=== PATIENT | female | born 1990 | race Hispanic/Latino ===

== ENCOUNTER 2025-07-25 08:53 | Emergency (ER) | payer OTHER, SELFPAY ==
[2025-07-25 08:53] VITALS: BP 113/71; PULSE 56; RESP 16; TEMP 36.2; O2SAT 100; BMI 24.8
--- NOTE | 2025-07-25 09:23 | EDS_ITS ---
HPI HPI - GI History of Present Illness Chief Complaint: Abd Pain Informant: patient and spouse/S.O. Abdominal Pain/Flank Pain Onset: Today and Yesterday Quality: Dull Current Severity: Mild Maximum Severity: Mild Nausea/Vomiting/Emesis GI Symptom: Negative for Nausea or Vomiting Diarrhea/Melena/Hematochezia GI Symptom: Negative for Diarrhea, Melena or Hematochezia Associated Symptoms Associated Symptoms: Negative for Dysuria, Frequency, Hematuria or Urgency Narrative Narrative: Healthy 34-year-old female moved from [place] about a year ago to this area. 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 Patient had a miscarriage earlier this year. Of the first time she is ever been . She has had lower abdominal discomfort pelvic discomfort since yesterday. Denies any dysuria. No fever. She took a test 1 was slightly positive the other 1 was negative she does not know if she could be . Last menstrual period was around the eighth of last month. She denies any vaginal bleeding. She has no prior abdominal or pelvic surgeries. G1, P0 Ab1. That being a miscarriage months ago. Prior similar symptoms: No Recent Illness/Hospitalization: No PFSH PFSH Medical History no medical history no medical history Allergy/AdvReac Type Severity Reaction Status Date / Time No Known Allergies Allergy Verified 07/25/25 08:55 Social History Smoking Status: Never smoker ROS ROS ED ROS Narrative Denies recent illness. Constitutional Constitutional ED: Denies chills or fever(s) ENT ENT ED: Denies ear pain Cardiovascular Cardiovascular: Denies chest pain Respiratory/Chest Respiratory/Chest: Denies cough or dyspnea Gastrointestinal Gastrointestinal: Reports abdominal pain Genitourinary Genitourinary ED: Denies dysuria or hematuria Musculoskeletal Musculoskeletal: Denies arthralgias or back pain Integumentary Denies abscess or Abrasions Neurologic Neurologic: Denies headache(s) Psychiatric Psychiatric: Denies anxiety Hematologic/Lymphatic Hematologic/Lymphatic: Denies easy bleeding or easy bruising Allergic/Immunologic Allergic/Immunologic ED: Denies mouth swelling, tongue swelling or urticaria EXAM Physical Exam Narrative Exam Narrative: Well-appearing 34-year-old female. Vital signs stable afebrile. She does not look septic toxic no distress. 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 H EENT exam pupils round react light. Moist mucous membranes. Neck nontender no JVD. No lymphadenopathy. Back nontender. Lungs clear to auscultation bilaterally. Heart regular rhythm no murmur. Chest wall and ribs are nontender. Abdomen soft nondistended normal bowel sounds without peritoneal signs. She describes pelvic discomfort but there is no reproducible pain. Moving all 4 extremities. Nontender no edema. Good strength normal range of motion. She is awake and alert. Answering questions following commands. No focal motor deficits. Very benign exam. Const Vital Signs: 07/25/25 08:53 07/25/25 10:53 Temperature 97.1 F L Temperature Source Temporal Pulse Rate 56 L 61 Respiratory Rate 16 14 Blood Pressure 113/71 110/77 Blood Pressure Mean 85 88 Pulse Ox 100 99 Oxygen Delivery Method Room Air Room Air Positive well nourished and well developed; Negative for obese, cachectic, contractures or unkempt General Appearance ED: well developed and NAD; Negative for unkempt, cachectic, contractures or pallor Nutritional Appearance: Negative for cachectic or obese HEENT Reports moist mucous membranes normocephalic and atraumatic Eyes PERRL and EOMs intact bilaterally General Eye ED: Negative for pale conjunctiva or scleral icterus Neck no lymphadenopathy, supple and no JVD Resp normal respiratory effort and clear to auscultation bilaterally Cardio regular rate, regular rhythm, S1 normal heart sound, S2 normal heart sound and no murmurs GI non-tender, non-distended and no masses Inspection: Negative for abdominal distention Auscultation: normoactive bowel sounds Palpation: soft; Negative for tender, guarding or rebound tenderness present Back/Spine no CVA tenderness Extremity full ROM General Extremety ED: Negative for edema or tenderness General Extremity: Negative for edema Neuro CN's II-XII intact bilaterally, moves all extremities and no sensory deficits noted Sensorium / Orientation: alert, oriented to person, oriented to place and oriented to time Motor Exam: strength 5/5 throughout Psych mental status grossly normal and thought process normal Appearance: Negative for unkempt Skin no wounds General Skin Exam: Negative for jaundice or pallor Lesions: no lesions Rashes: no rashes MDM MDM MDM Narrative Medical decision making narrative: 34-year-old female pelvic discomfort may or may not be . Last menstrual period was about a month ago. G1, P0 Ab1 with having a miscarriage earlier this year. Repeat exam patient is doing well. She will be discharged home with outpatient follow-up with a local [facility]. Patient is doing well. We discussed all of her test results. Again she does not think she was bleeding today there is a small discharge. History & Record Review Discussion w/independent historian: Patient and Family Additional record(s) reviewed:: No prior records Lab Data Attestation: I reviewed the patient's lab results. Lab results narrative: CBC unremarkable. White count of 10. H&H 13.6 and 39. Platelets 247. Chemistries are normal gap of 8. Normal BUN and creatinine. Glucose 88. UA normal. Serum test is positive. Blood type a positive. Quant 13. Blood type a positive. Ultrasound showed no intrauterine but it is very early with a quant only 13 that is not surprising. Labs: Laboratory Results - last 24 hr 07/25/25 07/25/25 07/25/25 09:30 10:27 11:10 WBC 10.9 RBC 4.32 Hgb 13.6 Hct 39.2 MCV 90.7 MCH 31.5 MCHC 34.7 RDW Std Deviation 39.9 RDW Coeff of Matthew 12.1 Plt Count 247 MPV 10.2 Immature Gran % (Auto) 0.500 Neut % (Auto) 72.6 H Lymph % (Auto) 12.7 L [place] % (Auto) 7.5 Eos % (Auto) 6.2 H Baso % (Auto) 0.5 Absolute Neuts (auto) 8.0 H Absolute Lymphs (auto) 1.39 Nucleated RBC % 0 Sodium 139 Potassium 4.0 Chloride 106 Carbon Dioxide 24.9 Anion Gap 8 BUN 11 Creatinine 0.96 Estim Creat Clear Calc 69.96 Est GFR (MDRD) Non-Af 78 BUN/Creatinine Ratio 11.8 Glucose 88 Calcium 9.0 HCG, Quant 13 H Serum , Qual POSITIVE Urine Color Yellow Urine Clarity Clear Urine pH 7.0 Ur Specific [place] 1.010 Urine Protein Negative Urine Glucose (UA) Normal Urine Ketones Negative Urine Occult Blood 10 H Urine Nitrite Negative Urine Bilirubin Negative Urine Urobilinogen Normal Ur Leukocyte Esterase Negative Urine RBC 0 SEEN Urine WBC 0 SEEN Ur Squamous Epith Cells 0-5 SEEN Urine Bacteria 0 SEEN Urine Mucus 0 SEEN Blood Type A POSITIVE Radiography Diagnostic Testing: Clinical Impression(s) from Imaging Studies Obstetrics Ultrasound 07/25/25 11:03 IMPRESSION: No intrauterine gestational sac or pole is seen. Small left corpus luteum cyst. Correlation with beta HCG recommended for further evaluation. Reading Location: [id number] Discharge Plan Triage Chief Complaint: Abd Pain ED Provider: Joseph Flores Dx/Rx/DC Orders Clinical Impression: First trimester Instructions: First Trimester Primary Care Provider: Care Physician,No Primary Referrals: Cari Latham DO [Med Staff - Active Staff] - As soon as possible Kristie Villagran MD [Med Staff - Active Staff] - As soon as possible Care Physician,No Primary [Primary Care Provider] - Activity Restrictions/Additional Instructions: Follow-up with one of the local [facility] group. You have a very early . Call their office. Tell them you are in the emergency department. You need follow-up. Print Language: [place] Disposition Disposition: Home, Self Care
[2025-07-25 09:48] LABS: Hematocrit 39.2 % (37-47); Hemoglobin 13.6 g/dL (12.0-15.0); Immature Granulocytes Count 0.050 X10^3/uL (0.0-0.0); Mean Corp Hgb Conc 34.7 g/dL (32-36); Mean Corpuscular Volume 90.7 fL (81-99); Mean Platelet Vol. 10.2 fl (6.2-12.0); NRBC Flagged by Analyzer 0 % (0-5); Platelet Count 247 K/mm3 (150-450); RBC Distribution Width CV 12.1 % (11.6-14.6); RBC Distribution Width SD 39.9 fl (35.1-43.9); Red Blood Count 4.32 M/mm3 (4.2-5.4); White Blood Count 10.9 K/mm3 (4.4-11.0)
[2025-07-25 10:04] LABS: Internal QC Validated? YES +Cl - CLEAR BKGD; Record Kit Lot#, Serum Preg. 0000964736
[2025-07-25 10:14] LABS: Pregnancy, Serum, hCG Quali. POSITIVE Negative
[2025-07-25 10:15] LABS: Anion Gap 8 (5-15); BUN 11 mg/dL (4-19); BUN/Creat Ratio 11.8 RATIO (10-20); Calcium,Total 9.0 mg/dL (7.6-11.0); Carbon Dioxide 24.9 mmol/L (21.0-32.0); Chloride 106 mmol/L (98-108); Estimated Creatinine Clearance 69.96 ml/min (50-250); Glucose 88 mg/dL (70-99); Potassium 4.0 mmol/L (3.3-5.1)
[2025-07-25 10:31] LABS: Mucous, Urine 0 SEEN /hpf (<or=2+); Red Blood Cells-Urine 0 SEEN /hpf (0-5)
[2025-07-25 10:35] LABS: Color, Urine Yellow (Yellow); Glucose, Dipstick Normal (Normal); Ketone-Dipstick Negative (Negative); Leukocyte Esterase-Dipstick Negative /ul (Negative); Nitrite-Dipstick Negative (Negative); Occult Blood-Urine 10 /ul (Negative); Protein-Dipstick Negative (Negative); Specific Gravity, Urine 1.010 (1.002-1.030); Urine Bilirubin Dipstick Negative (Negative)
[2025-07-25 10:47] LABS: Squamous Epithelial Cells - UA 0-5 SEEN /hpf (5-10)
[2025-07-25 10:53] VITALS: BP 110/77; PULSE 61; RESP 14; O2SAT 99
--- NOTE | 2025-07-25 11:03 | US_ITS ---
PROCEDURE: TRANSVAGINAL W/PREG US 07/25/2025 REASON FOR EXAM: PELVIC PAIN Left pelvic pain. Bleeding. TECHNIQUE: Procedure Code: [id number] Modality: US Procedure: TRANSVAGINAL W/PREG US COMPARISON: None FINDINGS: Comments: LMP: June 22, 2025. Number of Gestational Sacs: None Number of Fetuses: None Heart Rate: Not detected. ( Yolk Sac: Nonvisualized. Placenta: Not visualized. Uterine Abnormalities: Maternal uterus is unremarkable. Ovaries / Adnexa: Both maternal ovaries are visualized and unremarkable. 1.4 cm by 1.3 cm 1.2 cm left corpus luteum cyst. DIMENSIONS: Parameter Measurement / EGA [place] Rump Length: Not visualized Gestational Sac: Nonvisualized. Yolk Sac: Nonvisualized. ESTIMATED GESTATIONAL AGE: By Ultrasound: 4 weeks and 5 days ESTIMATED DATE OF DELIVERY: By Ultrasound: March 29, 2026 US/Transvaginal w/Preg US IMPRESSION: No intrauterine gestational sac or pole is seen. Small left corpus luteum cyst. Correlation with beta HCG recommended for further evaluation. Reading Location: [id number]
[2025-07-25 11:56] LABS: hCG Titer Quant., Serum 13 mIU/mL (<9 non-preg)
[2025-07-25 12:00] VITALS: BP 124/71; PULSE 68; RESP 18; O2SAT 99
[2025-07-25 13:51] VITALS: BP 112/61; PULSE 57; RESP 14; TEMP 36.8; O2SAT 100
== END 2025-07-25 13:52 | disposition home or self-care (01) ==
PROVIDERS: Emergency Provider Emergency Medicine; Visit Provider Emergency Medicine
DX: O26.891 Other specified pregnancy related conditions, first trimester (principal); R10.9 Unspecified abdominal pain; R19.7 Diarrhea, unspecified; O21.9 Vomiting of pregnancy, unspecified; Z3A.00 Weeks of gestation of pregnancy not specified
CPT/HCPCS: 76817; 80048; 81001; 84702; 84703; 85025; 86900; 86901; 99283; A4216